=== PATIENT | female | born 1990 | race African-American/Black ===

== ENCOUNTER 2021-06-15 14:12 | Emergency (ER) | payer MEDICAID ==
[~2021-06-15] VITALS: Ht 154.9 cm; Wt 69.4 kg
[2021-06-15 14:28] VITALS: BP 133/77
--- NOTE | 2021-06-15 14:35 | NUR ---
PT AMBULATED TO ER BED 4 WITH A STEADY GAIT.
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
--- NOTE | 2021-06-15 15:31 | NUR ---
DR. RUSH AT PT BEDSIDE FOR FURTHER EVALUATION.
[2021-06-15] MEDS ORDERED: HYDROcodone/APAP 5/325 MG 1 TAB TAB PO ONE (15:35)
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
--- NOTE | 2021-06-15 16:01 | NUR ---
PT TAKEN TO VIA W/C.
--- NOTE | 2021-06-15 17:00 | NUR ---
Patient discharged with v/s stable. Written and verbal after care instructions given and explained. Patient verbalized understanding. Ambulatory with steady gait. All questions addressed prior to discharge. Advised to follow up with PMD.
== END 2021-06-15 17:00 | disposition home or self-care (01) ==
LOC: MED 14:12
DX: R51.9 Headache, unspecified (principal); R42 Dizziness and giddiness; Z02.89 Encounter for other administrative examinations; Y09 Assault by unspecified means; Y93.89 Activity, other specified; Y92.89 Other specified places as the place of occurrence of the external cause; Y99.8 Other external cause status
CPT/HCPCS: 70450; 70486; 81025; 99285

== ENCOUNTER 2021-08-17 12:21 | Emergency (ER) | payer MEDICAID ==
[~2021-08-17] VITALS: Ht 154.9 cm; Wt 68.0 kg
[2021-08-17 12:41] VITALS: BP 135/80
--- NOTE | 2021-08-17 12:55 | NUR ---
PT TO WAIT IN LOBBY
--- NOTE | 2021-08-17 13:08 | NUR ---
LAB WITH PATIENT COLLECTING BLOODWORK
[2021-08-17 13:21] LABS: BASOPHILS % (AUTO) 0.5 % (0.0-2.0); EOSINOPHILS % (AUTO) 0.4 % (0.0-4.0); HEMATOCRIT 37.3 % (36-48); HEMOGLOBIN 12.4 g/dL (12.0-16.0); LYMPHOCYTES # (AUTO) 1.8 K/uL (2.5-16.5); LYMPHOCYTES % (AUTO) 29.5 % (20.5-51.1); MEAN CORPUSCULAR HEMOGLOBIN 29 pg (27-31); MEAN CORPUSCULAR HGB CONC 33 g/dL (33-37); MEAN CORPUSCULAR VOLUME 86.3 fL (80-94); MONOCYTES # (AUTO) 0.4 K/uL (0.8-1.0); MONOCYTES % (AUTO) 6.2 % (1.7-9.3); NEUTROPHILS # (AUTO) 3.8 K/uL (1.8-7.7); NEUTROPHILS % (AUTO) 63.4 % (42.2-75.2); PLATELET COUNT (AUTO) 165 K/uL (140-450); RED BLOOD CELL COUNT(AUTO) 4.32 MIL/uL (4.20-5.40); RED CELL DISTRIBUTION WIDTH 13.4 % (11.6-13.7)
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
[2021-08-17 13:45] LABS: ALBUMIN 4.3 g/dL (3.4-5.0); ANION GAP 14.8 (8-16); CARBON DIOXIDE 24.6 mmol/L (21-32); CREATININE 0.7 mg/dL (0.6-1.3); POTASSIUM 3.4 mmol/L (3.5-5.1); TOTAL BILIRUBIN 0.6 mg/dL (0.0-1.0)
[2021-08-17] MEDS ORDERED: ACETAMINOPHEN 325 MG TAB PO ONE (14:25)
--- NOTE | 2021-08-17 14:49 | NUR ---
ULTRASOUND BEDSIDE WITH PATIENT
--- NOTE | 2021-08-17 14:59 | NUR ---
DR SHARP AT BEDSIDE DOING PELVIC EXAM.
[2021-08-17 16:19] VITALS: BP 114/70
[2021-08-17 17:11] LABS: APPEARANCE,URINE CLEAR (CLEAR); BILIRUBIN,URINE NEGATIVE (NEGATIVE); BLOOD, URINE NEGATIVE (NEGATIVE); COLOR,URINE YELLOW (YELLOW); LEUKOCYTE ESTERASE ,URINE TRACE (NEGATIVE); NITRITE, URINE POSITIVE (NEGATIVE); PH,URINE 8.5 (5.0-9.0); UGLUCOSE NEGATIVE (NEGATIVE)
[2021-08-17 17:24] LABS: RBC,URINE 0-5 /HPF (0-5)
== END 2021-08-17 16:20 | disposition home or self-care (01) ==
LOC: MED 12:21
DX: O20.8 Other hemorrhage in early pregnancy (principal); Z3A.01 Less than 8 weeks gestation of pregnancy
CPT/HCPCS: 36415; 76801; 80053; 81001; 81025; 83690; 84702; 85025; 86901; 87086; 99284; Q0092

== ENCOUNTER 2022-11-04 20:28 | Emergency (ER) | payer OTHER ==
[~2022-11-04] VITALS: Ht 157.5 cm; Wt 77.1 kg
[~2022-11-04 20:28] MED LIST: FERR325E14 PO; PNV1TABL5 PO
[2022-11-04 20:34] VITALS: BP 137/90
--- NOTE | 2022-11-04 20:37 | NUR ---
TO LOBBY A/W BED AMBULATORY
--- NOTE | 2022-11-04 22:00 | NUR ---
SEEN AND EXAMINED BY BRAYDON
--- NOTE | 2022-11-04 22:10 | NUR ---
PT AMBULATES WITH STEADY GAIT TO ULTRASOUND
[2022-11-04 22:46] LABS: BASOPHILS % (AUTO) 0.2 % (0.0-2.0); EOSINOPHILS # (AUTO) 0.1 K/uL (0-0.4); EOSINOPHILS % (AUTO) 0.4 % (0.0-4.0); HEMATOCRIT 39.5 % (36-48); HEMOGLOBIN 12.9 g/dL (12.0-16.0); LYMPHOCYTES # (AUTO) 0.6 K/uL (2.5-16.5); LYMPHOCYTES % (AUTO) 4.5 % (20.5-51.1); MEAN CORPUSCULAR HEMOGLOBIN 28 pg (27-31); MEAN CORPUSCULAR HGB CONC 33 g/dL (33-37); MEAN CORPUSCULAR VOLUME 84.9 fL (80-94); MONOCYTES # (AUTO) 1.2 K/uL (0.8-1.0); MONOCYTES % (AUTO) 9.6 % (1.7-9.3); NEUTROPHILS # (AUTO) 10.9 K/uL (1.8-7.7); PLATELET COUNT (AUTO) 156 K/uL (140-450); RED BLOOD CELL COUNT(AUTO) 4.65 MIL/uL (4.20-5.40); WHITE BLOOD COUNT (AUTO) 12.8 K/uL (4.8-10.8)
[2022-11-04 23:00] LABS: NEUTROPHILS % (AUTO) 85.3 % (42.2-75.2)
[2022-11-04 23:04] LABS: ALBUMIN 4.7 g/dL (3.4-5.0); CREATININE 0.8 mg/dL (0.6-1.3); TOTAL BILIRUBIN 0.3 mg/dL (0.0-1.0)
[2022-11-04] MEDS ORDERED: MAGNESIUM HYDROXIDE 2400 MG/30 ML UDC PO ONE (23:15)
[2022-11-04 23:45] VITALS: BP 137/90
== END 2022-11-04 23:45 | disposition home or self-care (01) ==
LOC: MED 20:28
DX: K21.9 Gastro-esophageal reflux disease without esophagitis (principal); R11.10 Vomiting, unspecified; Z79.899 Other long term (current) drug therapy
CPT/HCPCS: 36415; 76705; 80053; 82150; 83690; 85025; 99284